=== PATIENT | female | born 1970 | race Caucasian/White ===

== ENCOUNTER 2021-10-14 17:49 | Emergency (ER) | payer OTHER ==
[~2021-10-14 17:49] MED LIST: KEFLEX500 MG PO; NAPROXEN500 MG PO; NORCO 5-325 TA1 EACH PO
[2021-10-14] MEDS ORDERED: DICLOFENAC SODI75 MG PO (19:21)
== END 2021-10-14 19:45 | disposition home or self-care (01) ==
LOC: FER 17:49
DX: S29.012A Strain of muscle and tendon of back wall of thorax, initial encounter (principal); F17.210 Nicotine dependence, cigarettes, uncomplicated; Z88.0 Allergy status to penicillin
CPT/HCPCS: 99283; J1885